=== PATIENT | female | born 1980 | race Caucasian/White ===

== ENCOUNTER 2022-07-25 05:27 | Day surgery (SDC) | payer BC ==
[2022-07-23 15:59] VITALS: BMI 28.4
[2022-07-25] MEDS ORDERED: Acetaminophen 500 MG TAB ONE (06:17)
[2022-07-25] MEDS ORDERED: Bupivacaine HCl 0.5%/Epinephrine 1:200,000/PF 30 ml Vial ONE (06:32)
[2022-07-25] MEDS ORDERED: PROPOFOL 20 ML ONE (06:37)
[2022-07-25] MEDS ORDERED: Fentanyl 100 MCG/2 ML VIAL ONE (06:37)
[2022-07-25] MEDS ORDERED: Ondansetron PF 4 MG/2 ML Vial ONE (06:37)
[2022-07-25] MEDS ORDERED: Rocuronium Bromide 10 MG/ML (10ML VIAL) ONE (06:37)
[2022-07-25] MEDS ORDERED: SUGAMMADEX SODIUM 200 MG/2 ML VIAL ONE (06:45)
[2022-07-25] MEDS ORDERED: HYDROmorphone 0.5 MG/0.5 ML SYRINGE ONE (06:45)
[2022-07-25] MEDS ORDERED: Lidocaine 2% 6 ML SYR ONE (06:46)
[2022-07-25] MEDS ORDERED: CEFAZOLIN 2 GM VIAL ONE (06:51)
[2022-07-25] MEDS ORDERED: Lidocaine 1% PF 5 ML VIAL ONE (07:17)
[2022-07-25] MEDS ORDERED: Dexamethasone 4 mg/ml Vial ONE (07:17)
[2022-07-25] MEDS ORDERED: PHENYLEPHRINE-NS 100 MCG/ML 10 ML SYRINGE ONE (07:34)
[2022-07-25] MEDS ORDERED: Ketorolac Tromethamine 30 MG/ML VIAL ONE ×2 (09:27→10:28)
[2022-07-25] MEDS ORDERED: Meperidine HCl/PF 25 MG/ML VIAL ONE (09:50)
[2022-07-25] MEDS ORDERED: Metoclopramide HCl 10 MG/2 ML VIAL ONE (10:28)
[2022-07-25] MEDS ORDERED: HYDROcodone/Acetaminophen 7.5/325 mg Tablet ONE ×2 (10:56→11:28)
[2022-07-25 12:09] LABS: Hemoglobin 9.1 g/dL (12.0-15.5)
== END 2022-07-25 14:30 | disposition home or self-care (01) ==
LOC: CSHSDC 05:27
PROVIDERS: ATTEND Obstetrics & Gynecology
PROC: 0UT94ZZ Resection of Uterus, Percutaneous Endoscopic Approach (ICD-10-PCS; principal; 2022-07-25)
PROC: 0UT74ZZ Resection of Bilateral Fallopian Tubes, Percutaneous Endoscopic Approach (ICD-10-PCS; principal; 2022-07-25)
DX: N80.03 Adenomyosis of the uterus (principal); N80.00 Endometriosis of the uterus, unspecified; N83.8 Other noninflammatory disorders of ovary, fallopian tube and broad ligament; N73.6 Female pelvic peritoneal adhesions (postinfective); R93.89 Abnormal findings on diagnostic imaging of other specified body structures; E03.9 Hypothyroidism, unspecified; Z90.49 Acquired absence of other specified parts of digestive tract; Z79.899 Other long term (current) drug therapy
CPT/HCPCS: 85014; 85018; 88307; C1776; J1100; J1170; J1885; J2175; J2405; J2704; J2765; J3010; Q9968